=== PATIENT | female | born 1960 | race Two or more races ===

== ENCOUNTER 2018-08-21 21:16 | Emergency (ER) | payer OTHER ==
[2018-08-21 21:23] VITALS: BMI 25.4
--- NOTE | 2018-08-22 00:09 | PDOC ---
History of Present Illness - General Chief Complaint: Headache Stated Complaint: HEAD AND BACK PAIN Time Seen by Provider: 08/21/18 22:57 History Source: Patient Exam Limitations: Language Barrier (French speaking. Utilized telephone paraeducator for interpretation. ) - History of Present Illness Initial Comments: 58 y/o female presenting to [facility] via private auto complaining of headache, generalized body aches, chills, and a dry nose for the past 24 hours. Pt states the pain is worse in her lower back and is stabbing in nature. She denies trauma to the area or symptoms. Reports a history of similar pain a few months ago but this episode is worse because of the chills and body aches. During the previous episode, the pt was evaluated emergency and diagnosed with a UTI. She was unable to fill the prescribed antibiotics because of a pharmacy or provider mix up. Her PCP told her there might have been an error but pt cannot recall what else her PCP told her. The pain resolved after using home remedies. PCP: Emilee Lau Medical Hx: -HTN Surgical Hx: - Cholecystectomy 2011 Past History - Past Medical History Allergies/Adverse Reactions: Allergies Allergy/AdvReac Type Severity Reaction Status Date / Time aspirin Allergy Verified 08/21/18 21:23 COPD: No HTN: Yes - Surgical History Cholecystectomy: Yes - Suicide/Smoking/Psychosocial Hx Smoking History: Never smoked Review of Systems - Review of Systems Able to Perform ROS?: Yes Comments:: In addition to that documented in the HPI above, the additional ROS was obtained : Constitutional: Denies fevers. Endorses chills Eyes: Denies vision changes ENMT: Denies sore throat CV: Denies chest pain Resp: Denies SOB GI: Denies vomiting or diarrhea *Physical Exam - Vital Signs Last Vital Signs Temp Pulse Resp BP Pulse Ox 99.2 F 102 H 18 132/60 97 08/21/18 21:20 08/21/18 21:20 08/21/18 21:20 08/21/18 21:20 08/21/18 21:20 - Physical Exam Comments: Constitutional: Well-developed, well-nourished female in no acute distress or obvious discomfort. Found semi-fowlers in hospital bed. Alert and oriented x4. Answered all questions appropriately and completely. Speech was non-labored, non -pressured. HEENT: Normocephalic. No obvious external signs of trauma. Hearing grossly normal. No nasal discharge. Sclera white. Neck is supple, trachea is midline. Cardiovascular: Regular rate and regular rhythm. No murmur, rubs, clicks, or gallops. Peripheral pulses: Radial pulses full. Respiratory: Breathing unlabored. Equal chest rise and fall. Clear to auscultation bilaterally. No stridor, no wheezing, no rhonchi. Gastrointestinal: abdomen is subjectively tender in LLQ and L flank without rebound or guarding. Globally abd is non-distended. No overlying skin lesions or obvious signs of trauma. Neuro: Alert and oriented. Moving all four extremities spontaneously. Skin: Warm, dry, and intact. : No CVA tenderness. Psych: Affect: appropriate. Mood: normal. ED Treatment Course - LABORATORY CBC & Chemistry Diagram: 08/22/18 01:08 08/22/18 01:08 - RADIOLOGY Radiograph Interpretation: Non-Con Sprial CT of Abdomen and Pelvis: Alex Kay MD wrote on Aug 22, 2018 at 03:47 AM: Referring Physician: BISHOP CARABALLO Patient Name: AMBER HANNON THIS IS A PRELIMINARY REPORT FROM [facility] DATE OF SERVICE: 2018-08-22 03:23:22 IMAGES: [id number] EXAM: CT abdomen and pelvis without IV contrast. Clinical indication: Left flank pain with hematuria. There are no prior studies available for comparison. Technique: Axial unenhanced CT images of the abdomen and pelvis were obtained followed by coronal and sagittal reformats. Findings: Visualized portions of the lower thorax are within normal limits. There is no free intra-abdominal gas or fluid. There is a prior cholecystectomy. The liver, adrenals, pancreas, and spleen are unremarkable, given the limitations of an unenhanced CT. There is mild prominence of the left renal collecting system and ureter, but without obvious obstructing lesion. Within the superior aspect of the left kidney there is a 0.3 cm nonobstructing renal calculus. There are no other renal calculi bilaterally. The bilateral kidneys are otherwise unremarkable, given the limitations of an unenhanced CT. There are no enlarged abdominal or pelvic lymph nodes, by size criteria. The urinary bladder is within normal limits. There is a phlebolith within the pelvis. There is been prior bilateral tubal ligation. The pelvic organs are otherwise grossly unremarkable, given limitations of CT for evaluating them. The appendix is normal. There is some minimal sigmoid diverticulosis, without evidence of diverticulitis. The remainder of the bowel is unremarkable. The visualized bony structures are unremarkable for the patient's age. Impression: 1. Mild prominence of the left renal collecting system and ureter, without obvious obstructing lesion. 2. 0.3 cm left-sided nonobstructing renal calculus. 3. Minimal sigmoid diverticulosis, without evidence of diverticulitis. 4. Otherwise, unremarkable CT of the abdomen and pelvis, given the limitations of an unenhanced CT. Individualized dose optimization techniques were used for this CT. THIS DOCUMENT HAS BEEN ELECTRONICALLY SIGNED Alex Kay MD 08/22/2018 02:46 EST Medical Decision Making - Medical Decision Making *Reviewed vital signs, nursing notes, and prior visit documentation (if available). 58 y/o female complaining of lower back pain, body aches, and chills. Afebrile. Vitals unremarkable. D/D: UTI, nephrolithiasis, pyelonephritis, msk pain. CBC and CMP hemolyzed. Reordered. CBC revealed mild leukocytosis without left shift. Suspect reactionary. CMP unremarkable for electrolyte abnormality or LFT elevation. UA revealed 1+ blood without pyuria, leukocyte esterase, or nitrites. Suspect nephrolithiasis. Ordered non-con spiral CT to further evaluate. Spiral CT revealed small left-sided nonobstructing renal calculus and mild prominence of left renal collecting system and ureter. Suspect pain is related to a recently passed stone. Pt reports pain has somewhat improved with regland, acetaminophen, and NS IVFB. Discussed imaging and laboratory results with pt. Answered all questions. Provided return precautions. Pt expressed verbal understanding and agreement with plan to discharge home with outpatient follow up. Provided urology referral. *DC/Admit/Observation/Transfer Diagnosis at time of Disposition: Left flank pain - Discharge Dispostion Disposition: HOME Condition at time of disposition: Good Decision to Admit order: No - Referrals Referrals: Emilee Lau MD [Primary Care Provider] - Yuri Brennan MD., [Staff Physician] - - Patient Instructions Printed Discharge Instructions: DI for Kidney Stones Additional Instructions: Your urine test was positive for a small amount of blood. Your CT scan showed a mild enlargement of a part of the left side of your urinary system and a small kidney stone in your left kidney. The enlargement could have been caused by a kidney stone that you passed. That would also explain the blood in your urine. The stone inside of your kidney should not cause pain. You can take over the counter Tylenol or Advil as needed for pain. Take as directed on the package insert. Do not exceed the recommended dosage. Follow up with your primary care physician within the next 3-4 days. You will need to call to make an appointment. Take this packet with you. Your results from todays visit are attached. Show them to your doctor. I have also placed a referral for you to see a urologist, Dr. Brennan. You will need to call to make an appointment. The number is included in this packet. Go to the nearest emergency department if your condition worsens or you feel like you need additional emergency evaluation. Agarwal anlisis de orina fue positivo para makeda pequea cantidad de howard. Agarwal tomografa computarizada mostr makeda leve ampliacin de makeda parte del lado kelechi de agarwal sistema urinario y un pequeo clculo renal en agarwal rin kelechi. La ampliacin podra gaston sido causada por un clculo renal que usted pas. Eso jesus explicara la howard en agarwal orina. La zonia dentro de agarwal rin no debe causar dolor. Puede mook el contador de Tylenol o Advil segn sea necesario para el dolor. Mook radha se indica en el prospecto. No exceda la dosis recomendada. Jolene un seguimiento con agarwal mdico de atencin primaria en los prximos 3 a 4 patel. Tendr que llamar para hacer makeda kleber. Lleva aye paquete contigo. Se adjuntan los resultados de la visita de hoy. Zendejaselannabel a tu mdico. Jesus he colocado makeda referencia para que usted dayami a un urlogo, el Dr. Brennan. Tendr que llamar para hacer makeda kleber. El nmero est incluido en aye paquete. Dirjase al departamento de emergencias ms cercano si agarwal condicin empeora o si maninder que necesita makeda evaluacin de emergencia adicional. Print Language: CITIZEN OF [place] - Post Discharge Activity
[2018-08-22 00:12] VITALS: BP 128/68; PULSE 91; TEMP 99.3
[2018-08-22 00:54] LABS: URINE APPEARANCE CLEAR; URINE BILIRUBIN NEGATIVE (<2.0 mg/dL); URINE COLOR COLORLESS; URINE GLUCOSE (UA) NEGATIVE (NEGATIVE); URINE KETONE NEGATIVE (NEGATIVE); URINE LEUK ESTERASE NEGATIVE (NEGATIVE); URINE NITRITE NEGATIVE (NEGATIVE); URINE PROTEIN NEGATIVE (NEGATIVE); URINE UROBILINOGEN NEGATIVE mg/dL (0.2-1.0)
[2018-08-22 01:15] LABS: BASO % 0.7 % (0-2.0); EOS % 0.2 % (0-4.5); HEMATOCRIT 39.4 % (32.4-45.2); HEMOGLOBIN 13.2 GM/dL (10.7-15.3); LYMPH % 23.6 % (8-40); MCH 29.1 pg (25.7-33.7); MCHC 33.6 g/dl (32.0-36.0); MEAN CELL VOLUME 86.7 fl (80-96); MEAN PLT VOLUME 7.4 fl (7.5-11.1); MONO % 4.8 % (3.8-10.2); NEUT % 70.7 % (42.8-82.8); PLATELET COUNT 357 K/MM3 (134-434); RBC 4.55 M/mm3 (3.60-5.2); RDW 13.7 % (11.6-15.6); WHITE BLOOD COUNT 12.1 K/mm3 (4.0-10.0)
[2018-08-22] MEDS ORDERED: SODIUM CHLORIDE 0.9% 1000 ML INFUS.BAG IV ONE (01:17)
[2018-08-22] MEDS ORDERED: SODIUM CHLORIDE 0.9% 500 ML INFUS.BAG IV ONE (01:17)
[2018-08-22] MEDS ORDERED: ACETAMINOPHEN 1000 MG/100 ML VIAL (NON FORMULARY) IVPB ONE (01:17)
[2018-08-22] MEDS ORDERED: ACETAMINOPHEN 500 MG TABLET (FP) PO ONE (01:18)
[2018-08-22] MEDS ORDERED: METOCLOPRAMIDE HCL INJECTION 10 MG/2 ML VIAL IVPUSH ONE (01:26)
--- NOTE | 2018-08-22 01:28 | PDOC ---
Attending Attestation - Resident Resident Name: LindsayGino - ED Attending Attestation I have performed the following: I have examined & evaluated the patient, The case was reviewed & discussed with the resident, I agree w/resident's findings & plan, Exceptions are as noted - Medical Decision Making 08/22/18 01:26 I, Dr. Maryam Sheffield, DO, attest that this document has been prepared under my direction and personally reviewed by me in its entirety. I further attest, that it accurately reflects all work, treatment, procedures and medical decision -making performed by me. 08/22/18 01:26 a/p: 58yo female with body aches and flank pain that started last night -c/o isaac today -neuro intact -suspect uti vs pyelo vs renal colic vs infected renal stone vs viral syndrome -will send labs, ua, ct abd/pelvis -will medicate, monitor and reassess 08/22/18 01:[address] pending <Maryam Sheffield - Last Filed: 08/22/18 01:26> - HPI HPI: 08/22/18 01:35 The patient is a 58 year old female, with a significant past medical history of HTN, who presents to the ED complaining of headache, body aches, and chills for the past 2 days. She describes her headache as ranging from mild to moderate , without radiation or modifying factors. She notes that her headache also catches her eyes bilaterally. She notes that she does feel short of breath but mostly due to her dry nose. She notes that her bodyache is throughout her body but mostly localized on her lower back, which she describes as a stabbing sensation. She denies any modifying factors. The patient denies chest pain, , and dizziness. Denies fever, nausea, vomit, diarrhea or constipation. Denies dysuria, frequency, urgency and hematuria. Allergies: None Past surgical history: Cholecystectomy Social History: No alcohol, tobacco or drug use reported - Physicial Exam PE: 08/22/18 01:35 Constitutional: Awake, alert, oriented. No acute distress. Head: Normocephalic. Atraumatic Eyes: PERRL. EOMI. Conjunctivae are not pale. ENT: Mucous membranes are moist and intact. Posterior pharynx without exudates or erythema. Uvula midline. Neck: Supple. Full ROM. No lymphadenopathy. Cardiovascular: (+) Tachycardia. Regular rhythm. S1, S2 regular. Distal pulses are 2+ and symmetric. Pulmonary/Chest: No evidence of respiratory distress. Clear to auscultation bilaterally No wheezing, rales or rhonchi. Abdominal: (+) Left lower quadrant suprapubic tenderness. Soft and non- distended. No rebound, guarding or rigidity. No organomegaly. No palpable masses. Good bowel sounds. Back: (+) Bilateral CVA tenderness. Left greater than Right. Musculoskeletal: No edema. No cyanosis. No clubbing. Full range of motion in all extremities. Nocalf tenderness. Radial/pedal pulses are intact and 2+ bilaterally Skin: Skin is warm and dry. No petechiae. No purpura. Neurological: Alert and oriented to person, place, and time. Cranial nerves II -XII are grossly intact. Normal speech. Strength is grossly symmetric. No sensory deficits. Psychiatric: Good eye contact. Normal interaction, affect and behavior. <Ralph Antonio - Last Filed: 08/22/18 01:45>
[2018-08-22 01:44] LABS: ALBUMIN 3.5 g/dl (3.4-5.0); ALK PHOS 114 U/L (45-117); ANION GAP 7 MMOL/L (8-16); BILIRUBIN,TOTAL 0.5 mg/dL (0.2-1); BLOOD UREA NITROGEN 7 mg/dL (7-18); CALCIUM 8.6 mg/dL (8.5-10.1); CHLORIDE 101 mmol/L (98-107); CO2 26 mmol/L (21-32); CREATININE 0.5 mg/dL (0.55-1.3); GLUCOSE,RANDOM 100 mg/dL (74-106); POTASSIUM 4.2 mmol/L (3.5-5.1); SGOT/AST 46 U/L (15-37); SGPT/ALT 33 U/L (13-61); SODIUM 135 mmol/L (136-145)
[2018-08-22] MEDS ORDERED: METOCLOPRAMIDE HCL INJECTION 10 MG/2 ML VIAL ONE (02:12)
[2018-08-22] MEDS ORDERED: ACETAMINOPHEN INJECTION 100 ML IVPB ONE (02:12)
== END 2018-08-22 04:39 | disposition home or self-care (01) ==
LOC: JERFT 21:16 → JER 21:16
PROC: 3E033NZ Introduction of Analgesics, Hypnotics, Sedatives into Peripheral Vein, Percutaneous Approach (ICD-10-PCS; principal; 2018-08-21)
PROC: 3E033GC Introduction of Other Therapeutic Substance into Peripheral Vein, Percutaneous Approach (ICD-10-PCS; 2018-08-21)
DX: N20.0 Calculus of kidney (principal); Z87.440 Personal history of urinary (tract) infections; I10 Essential (primary) hypertension
CPT/HCPCS: 36415; 74176; 80053; 81003; 81015; 85025; 87086; 99281-25; J0131; J7030